=== PATIENT | male | born 1995 | race African-American/Black ===

== ENCOUNTER 2024-09-13 20:33 | Emergency (ER) | payer OTHER ==
[2024-09-13 20:53] VITALS: BP 102/73; PULSE 100; RESP 16; TEMP 99.3; BMI 22.3
[2024-09-13] MEDS ORDERED: KETOROLAC TROMETHAMINE 60 MG/2 ML VIAL ONE (21:07)
[2024-09-13] MEDS: KETOROLAC TROMETHAMINE 60 MG/2 ML VIAL IM ONE (21:08)
== END 2024-09-13 21:19 | disposition home or self-care (01) ==
LOC: FER 20:33
PROC: 3E0233Z Introduction of Anti-inflammatory into Muscle, Percutaneous Approach (ICD-10-PCS; principal; 2024-09-13)
DX: M79.10 Myalgia, unspecified site (principal); M25.569 Pain in unspecified knee; M25.539 Pain in unspecified wrist; R11.0 Nausea; R50.9 Fever, unspecified; J39.9 Disease of upper respiratory tract, unspecified; B97.89 Other viral agents as the cause of diseases classified elsewhere; V89.2XXA Person injured in unspecified motor-vehicle accident, traffic, initial encounter; Z20.822 Contact with and (suspected) exposure to COVID-19
CPT/HCPCS: 0241U-QW; 99284-25